=== PATIENT | male | born 1990 | race Caucasian/White ===

== ENCOUNTER 2020-10-01 23:00 | Emergency (ER) | payer SELFPAY ==
[2020-10-01 23:04] VITALS: BP 139/86; PULSE 85
[2020-10-01] MEDS: Orphenadrine 60 MG/2 ML Inj IM ONE (23:33)
[2020-10-01] MEDS: Ketorolac 60 MG/2 ML SDV IM ONE (23:33)
--- NOTE | 2020-10-01 23:39 | EDM.PDOC ---
ED HPI GENERAL MEDICAL PROBLEM - General Chief Complaint: Headache Stated Complaint: migraine Time Seen by Provider: 10/01/20 23:19 Source of Information: Reports: Patient History Limitations: Reports: No Limitations - History of Present Illness INITIAL COMMENTS - FREE TEXT/NARRATIVE: Ed is a 30 year old male who presents for a migraine headache for 2 days[address] [place] [facility]. Has been taking ibuprofen, excedrin migraine and consuming caffeine. This typically controls his headache. Has required ER visits in the past when it gets this severe. Notes pain to the right side of his head, weakness in his arm and blurred vision in the right eye, all similar complaints to migraines in the past. No nausea or vomiting. Does have light sensitivity. Has been sleeping fine but admits his neck is getting tight and feels tense. Has not been on scheduled or daily medications for migraines. Onset: Gradual Duration: Day(s): Location: Reports: Head Quality: Reports: Ache Severity: Severe Associated Symptoms: Denies: Confusion, Chest Pain, Cough, Fever/Chills, Loss of Appetite, Nausea/Vomiting, Shortness of Breath Treatments PLUMBER ASSISTANT: Reports: NSAIDS Headache Pain Score (Numeric/FACES): 8 - Related Data Allergies Allergy/AdvReac Type Severity Reaction Status Date / Time tramadol Allergy Seizure Verified 10/01/20 23:06 Home Meds: Home Meds Cholecalciferol (Vitamin D3) [Vitamin D] 5,000 unit PO DAILY 10/01/20 [History] FA/Lycopene/Lut/MV,Ca,Iron,Min [Centrum] 1 tab PO DAILY 10/01/20 [History] Past Medical History Neurological History: Reports: Migraines - Past Surgical History GI Surgical History: Reports: Other (See Below) Other GI Surgeries/Procedures: RECTAL ABCESS Social & Family History - Tobacco Use Tobacco Use Status *Q: Current Every Day Tobacco User Years of Tobacco use: 11 Packs/Tins Daily: 2 - Caffeine Use Caffeine Use: Reports: Coffee, Energy Drinks, Soda - Recreational Drug Use Recreational Drug Use: Yes Recreational Drug Type: Reports: Marijuana/Hashish Recreational Drug Use Frequency: Rarely ED ROS GENERAL - Review of Systems Review Of Systems: See Below Constitutional: Denies: Fever, Chills, Malaise, Weakness HEENT: Reports: Vision Change. Denies: Ear Pain, Rhinitis, Sinus Problem, Throat Pain Respiratory: Denies: Shortness of Breath, Cough Cardiovascular: Denies: Chest Pain, Edema, Lightheadedness Endocrine: Denies: Fatigue GI/Abdominal: Denies: Abdominal Pain, Constipation, Diarrhea, Nausea, Vomiting : Reports: No Symptoms Musculoskeletal: Reports: No Symptoms Neurological: Reports: Headache - Physical Exam Exam: See Below Exam Limited By: No Limitations General Appearance: Alert, WD/WN, Mild Distress Eye Exam: Bilateral Eye: EOMI, PERRL Ears: Normal External Exam, Normal TMs Nose: Normal Inspection, Normal Mucosa, No Blood Throat/Mouth: Normal Inspection, Normal Oropharynx Head Exam: Normocephalic Neck: Normal Inspection, Supple, Non-Tender Respiratory/Chest: No Respiratory Distress, Lungs Clear, Normal Breath Sounds Cardiovascular: Regular Rate, Rhythm GI/Abdominal: Normal Bowel Sounds, Soft, Non-Tender Neuro Exam (Abbreviated): Alert, Oriented, CN II-XII Intact, Normal Cognition, Normal Gait, Normal Reflexes, No Motor/Sensory Deficits Skin Exam: Warm, Dry Course - Vital Signs Last Recorded V/S: Last Vital Signs Temp 96.2 F L 10/01/20 23:01 Pulse 85 10/01/20 23:01 Resp 18 10/01/20 23:01 BP 139/86 10/01/20 23:01 Pulse Ox 98 10/01/20 23:01 - Orders/Labs/Meds Meds: Medications Discontinued Medications Generic Name Dose Route Start Last Admin Trade Name Chucky PRN Reason Stop Dose Admin Ketorolac Tromethamine 60 mg 10/01/20 23:28 10/01/20 23:33 Ketorolac 60 Mg/2 Ml Sdv IM 10/01/20 23:29 60 mg ONETIME ONE Administration Orphenadrine Citrate 60 mg 10/01/20 23:28 10/01/20 23:33 Orphenadrine 60 Mg/2 Ml Inj IM 10/01/20 23:29 60 mg ONETIME ONE Administration Departure - Departure Time of Disposition: 23:41 Disposition: Home, Self-Care 01 Condition: Good Clinical Impression: Migraine - Discharge Information *PRESCRIPTION DRUG MONITORING PROGRAM REVIEWED*: No *COPY OF PRESCRIPTION DRUG MONITORING REPORT IN PATIENT NIKIA: No Instructions: Recurrent Migraine Headache, [id number] Additional Instructions: 1. Push fluids 2. Ibuprofen, excedrin, tylenol as needed 3. Rest as much as able 4. Follow up as needed Sepsis Event Note (ED) - Evaluation Sepsis Screening Result: No Definite Risk - Focused Exam Vital Signs: Vital Signs Temp Pulse Resp BP Pulse Ox 10/01/20 23:01 96.2 F L 85 18 139/86 98
== END 2020-10-01 23:50 | disposition home or self-care (01) ==
LOC: CC.ED 23:00
DX: G43.909 Migraine, unspecified, not intractable, without status migrainosus (principal); Z72.0 Tobacco use; Z88.5 Allergy status to narcotic agent
CPT/HCPCS: 96372; 99283; J1885; J2360